=== PATIENT | female | born 1990 | race American Indian/Alaskan Native ===

== ENCOUNTER 2017-05-26 10:33 | Emergency (ER) | payer MEDICAID ==
[2017-05-26 10:46] VITALS: BP 116/65
[2017-05-26] MEDS ORDERED: TETRACAINE 0.5% OU ONE (12:58)
[2017-05-26] MEDS ORDERED: FUL-GLO OP ONE (12:58)
[2017-05-26] MEDS ORDERED: DELTASONE PO ONE (12:58)
[2017-05-26] MEDS ORDERED: BSS OU ONE (12:58)
--- NOTE | 2017-05-26 12:58 | Emergency Department Report ---
ED Eye Problem HPI - General Chief complaint: Eye Problems Stated complaint: RED EYES AND PUFFY EYES Time Seen by Provider: 05/26/17 12:48 Source: patient Mode of arrival: Ambulatory Limitations: No Limitations - History of Present Illness chief complaint: eye redness -: Sudden Onset Description: sudden Location: left eye Place: home If Injury: other (playing with new guinnae pig) Eye Symptoms: redness, other (swelling per pt; took benadryl at home) Severity: mild Associated Symptoms: denies: headache, neck pain, nausea/vomiting, cough, rhinorrhea, fever, shortness of breath Treatments Prior to Arrival: other (benadryly) - Related Data Patient Tetanus UTD: Yes Previous Rx's Medication Instructions Recorded Last Taken Type methylPREDNISolone [Medrol] 4 mg PO DAILY #1 tab.ds.pk 05/26/17 Unknown Rx Allergies Allergy/AdvReac Type Severity Reaction Status Date / Time No Known Allergies Allergy Verified 05/26/17 10:43 ED Review of Systems ROS: Stated complaint: RED EYES AND PUFFY EYES Other details as noted in HPI Comment: All other systems reviewed and negative Eyes: other (eye red and swollen b) ED Past Medical Hx - Past Medical History Hx Hypertension: No Hx Congestive Heart Failure: No Hx Diabetes: No Hx Deep Vein Thrombosis: No Hx Renal Disease: No Hx Sickle Cell Disease: No Hx Arthritis: Yes Hx Seizures: No Hx Asthma: No Hx HIV: No - Surgical History Additional Surgical History: - Social History Smoking Status: Never Smoker Substance Use Type: None - Medications Home Medications: Home Medications Medication Instructions Recorded Confirmed Last Taken Type methylPREDNISolone [Medrol] 4 mg PO DAILY #1 tab.ds.pk 05/26/17 Unknown Rx ED Physical Exam - General Limitations: No Limitations General appearance: alert - Head Head exam: Present: atraumatic - Eye Eye exam: Present: PERRL, EOMI - ENT ENT exam: Present: normal exam, normal orophraynx, mucous membranes moist - Neck Neck exam: Present: normal inspection - Respiratory Respiratory exam: Present: normal lung sounds bilaterally - Cardiovascular Cardiovascular Exam: Present: regular rate - GI/Abdominal GI/Abdominal exam: Present: soft - Rectal Rectal exam: Present: deferred - Extremities Exam Extremities exam: Present: normal inspection, full ROM - Back Exam Back exam: Present: normal inspection, full ROM - Neurological Exam Neurological exam: Present: alert, oriented X3, CN II-XII intact, normal gait - Psychiatric Psychiatric exam: Present: normal affect, normal mood - Skin Skin exam: Present: warm, dry, intact. Absent: rash ED Course Vital Signs 05/26/17 10:43 Temperature 98.2 F Pulse Rate 78 Respiratory 18 Rate Blood Pressure 116/65 O2 Sat by Pulse 100 Oximetry - Reevaluation(s) Reevaluation #1: 05/26/17 13:47 to er w red and swollen eyes p playing w pet new animal benadryl po at home so minimal s/s here in er eyes stained no fb, abrasion or ulceration medicated with prednisone po dc home w dc poc ED Medical Decision Making - Medical Decision Making see note abc intact minor allergy - Differential Diagnosis allergic response Critical care attestation.: If time is entered above; I have spent that time in minutes in the direct care of this critically ill patient, excluding procedure time. ED Disposition Clinical Impression: Allergic reaction Disposition: DC-01 TO HOME OR SELFCARE Is pt being admited?: No Does the pt Need Aspirin: No Condition: Stable Instructions: Allergies (ED) Additional Instructions: benadryl over the counter for rash or itchy eyes med as ordered today, starting in am wash hands after touching guinnea pig follow up with family doctor, see below, within 1 week for reevaluation Prescriptions: methylPREDNISolone [Medrol] 4 mg PO DAILY #1 tab.ds.pk Referrals: PRIMARY CARE, [Primary Care Provider] - 3-5 Days BUDDY BERMAN MD [Staff Physician] - 3-5 Days Time of Disposition: 13:43
[2017-05-26] MEDS ORDERED: TOBRADEX OU ONE (13:58)
== END 2017-05-26 14:01 | disposition home or self-care (01) ==
LOC: ED 10:33
DX: T78.40XA Allergy, unspecified, initial encounter (principal); M19.90 Unspecified osteoarthritis, unspecified site
CPT/HCPCS: 99283; J7512

== ENCOUNTER 2017-12-23 12:28 | Emergency (ER) | payer MEDICAID ==
[2017-12-23 12:45] VITALS: BP 108/75
--- NOTE | 2017-12-23 14:43 | Emergency Department Report ---
ED General Adult HPI - General Chief complaint: Skin Rash Stated complaint: BEE STING/SWOLLEN LEG & FINGERS Time Seen by Provider: 12/23/17 14:23 Source: patient Mode of arrival: Ambulatory Limitations: No Limitations - History of Present Illness Initial comments: Patient is a 27-year-old female who was stung by wasp 2 days ago. Patient was stung on the left ring finger as well as the left thigh. Patient states the finger swelling is not that bad but thigh was concerning her. Patient states his pain and itching. This is a pain as a burning sensation. Patient denies any fevers chills nausea vomiting shortness of breath at this time. - Related Data Previous Rx's Medication Instructions Recorded Last Taken Type methylPREDNISolone [Medrol] 4 mg PO DAILY #1 tab.ds.pk 05/26/17 Unknown Rx Clindamycin [Clindamycin CAP] 300 mg PO Q8H 7 Days cap 12/23/17 Unknown Rx HYDROcodone/APAP 5-325 [[place] 1 each PO Q4HR PRN #12 tablet 12/23/17 Unknown Rx 5/325] Ibuprofen [Motrin] 600 mg PO Q8H PRN #20 tablet 12/23/17 Unknown Rx predniSONE [Deltasone] 20 mg PO QDAY #5 tab 12/23/17 Unknown Rx Allergies Allergy/AdvReac Type Severity Reaction Status Date / Time No Known Allergies Allergy Verified 12/23/17 12:44 ED Review of Systems ROS: Stated complaint: BEE STING/SWOLLEN LEG & FINGERS Other details as noted in HPI Comment: All other systems reviewed and negative ED Past Medical Hx - Past Medical History Hx Hypertension: No Hx Congestive Heart Failure: No Hx Diabetes: No Hx Deep Vein Thrombosis: No Hx Renal Disease: No Hx Sickle Cell Disease: No Hx Arthritis: Yes Hx Seizures: No Hx Asthma: No Hx HIV: No - Surgical History Past Surgical History?: Yes Additional Surgical History: - Social History Smoking Status: Never Smoker Substance Use Type: None - Medications Home Medications: Home Medications Medication Instructions Recorded Confirmed Last Taken Type methylPREDNISolone [Medrol] 4 mg PO DAILY #1 tab.ds.pk 05/26/17 Unknown Rx Clindamycin [Clindamycin CAP] 300 mg PO Q8H 7 Days cap 12/23/17 Unknown Rx HYDROcodone/APAP 5-325 [[place] 1 each PO Q4HR PRN #12 tablet 12/23/17 Unknown Rx 5/325] Ibuprofen [Motrin] 600 mg PO Q8H PRN #20 tablet 12/23/17 Unknown Rx predniSONE [Deltasone] 20 mg PO QDAY #5 tab 12/23/17 Unknown Rx ED Physical Exam - General Limitations: No Limitations General appearance: alert, in no apparent distress - Head Head exam: Present: atraumatic, normocephalic - Eye Eye exam: Present: normal appearance - ENT ENT exam: Present: mucous membranes moist - Neck Neck exam: Present: normal inspection - Respiratory Respiratory exam: Present: normal lung sounds bilaterally. Absent: respiratory distress - Cardiovascular Cardiovascular Exam: Present: regular rate, normal rhythm. Absent: systolic murmur, diastolic murmur, rubs, gallop - GI/Abdominal GI/Abdominal exam: Present: soft, normal bowel sounds - Extremities Exam Extremities exam: Present: normal inspection - Back Exam Back exam: Present: normal inspection - Neurological Exam Neurological exam: Present: alert, oriented X3 - Psychiatric Psychiatric exam: Present: normal affect, normal mood - Skin Skin exam: Present: warm, dry, intact, normal color, other (he has a grapefruit- sized area of induration and erythema and warmth to the left anterior thigh). Absent: rash ED Course Vital Signs 12/23/17 12:41 Temperature 98.5 F Pulse Rate 70 Respiratory 18 Rate Blood Pressure 108/75 O2 Sat by Pulse 100 Oximetry ED Medical Decision Making - Medical Decision Making Patient was stung by wasp 2 days ago and has secondary cellulitis secondary to sting. Patient was started on antibiotics also be started on prednisone as well to be discharged home. Critical care attestation.: If time is entered above; I have spent that time in minutes in the direct care of this critically ill patient, excluding procedure time. ED Disposition Clinical Impression: Wasp sting Qualifiers: Encounter type: initial encounter Injury intent: accidental or unintentional Qualified Code(s): T63.461A - Toxic effect of venom of wasps, accidental ( unintentional), initial encounter Cellulitis Qualifiers: Site of cellulitis: extremity Site of cellulitis of extremity: lower extremity Laterality: left Qualified Code(s): L03.116 - Cellulitis of left lower limb Disposition: - TO HOME OR SELFCARE Is pt being admited?: No Does the pt Need Aspirin: No Condition: Stable Instructions: Insect Bite or Sting (ED), Cellulitis (ED) Additional Instructions: Take Benadryl every 4-6 hours when necessary for itching
== END 2017-12-23 14:58 | disposition home or self-care (01) ==
LOC: ED 12:28
DX: T63.461A Toxic effect of venom of wasps, accidental (unintentional), initial encounter (principal); L03.116 Cellulitis of left lower limb; M79.645 Pain in left finger(s); M19.90 Unspecified osteoarthritis, unspecified site; Y92.89 Other specified places as the place of occurrence of the external cause
CPT/HCPCS: 99282